=== PATIENT | male | born 2000 | race Caucasian/White ===

== ENCOUNTER 2024-04-19 09:09 | Emergency (ER) | payer SELFPAY ==
[2024-04-19 09:13] VITALS: BP 119/84
[2024-04-19 10:42] LABS: Urine Albumin 3+ (Neg - Trace); Urine Bilirubin 1+ (Negative); Urine Character Very Cloudy (Clear); Urine Color Brown; Urine Glucose Negative (Negative); Urine Ketone Trace (Negative); Urine Leukocyte Trace (Negative); Urine Nitrite Negative (Negative); Urine Occult Blood 3+ (Negative); Urine Urobilinogen 1+ (Neg - 1+)
[2024-04-19 10:58] LABS: Urine Red Blood Cell >100 /HPF (0-2)
[2024-04-19 11:03] LABS: % Basophils 0.6 % (0-2); % Eosinophils 1.9 % (0-6); % Immature Granulocytes 0.6 % (0-0.5); % Monocytes 11.4 % (1.7-9.3); % Neutrophils 70.5 % (42.2-75.2); Absolute Eosinophils 0.1 10^3/uL (0-0.7); Absolute Monocytes 0.8 10^3/uL (0.1-0.6); Absolute Neutrophils 4.9 10^3/uL (1.4-6.5); Hematocrit 42.8 % (39.0-52.0); Hemoglobin 15.5 g/dL (13.0-18.0); Mean Corp Hgb Conc. 36.2 g/dL (33.0-37.0); Mean Platelet Volume 10.5 fL (7.4-10.4); Nucleated Red Blood Cells % 0 % (-); Platelet Count 212 10^3/uL (130-400); Red Blood Cell Count 5.35 10^6/uL (4.70-6.10); Red Cell Dist. Width 12.7 % (11.5-14.5); White Blood Cell Count 6.9 10^3/uL (4.8-10.8)
[2024-04-19 11:26] LABS: Blood Urea Nitrogen 8 mg/dl (9-20); Calcium 9.9 mg/dl (8.4-10.2); Carbon Dioxide 31 mmol/L (22-30); Chloride 99 mmol/L (98-107); Creatine Phosphokinase 47 U/L (55-170); Glucose 109 mg/dl (70-99); Potassium 3.7 mmol/L (3.5-5.1); Sodium 140 mmol/L (135-145); eGFR > 60.00
--- NOTE | 2024-04-19 14:20 | ED.GENMED ---
History of Present Illness
General
Chief Complaint: Urinary Symptoms
Time Seen by Provider: 04/19/24 09:52
History of Present Illness
History of Present Illness:
Patient describing hematuria today. Some whiteness to his urine the last few days. Different than semen. No flank pain or back pain no fever or chills.
Phy Exam
Physical Exam
Physical Exam:
GENERAL: Alert and oriented in no apparent distress
EYE: Orbits normal.
NECK: Supple, no significant adenopathy.
ENT: Pharynx without erythema
CARDIAC: Regular rate and rhythm without any obvious murmurs.
LUNGS: Clear breath sounds,normal
ABDOMEN: Soft, without focal tenderness or distention. No CVA tenderness
: Within normal limits
NEUROLOGICAL: Alert and oriented , grossly non-focal
SKIN: Warm and dry, no rash or lesion, no discoloration, skin intact.
MUSCULOSKELETAL: No edema,no deformity.Good color
PSYCH: Normal and appropriate interaction.
Course
Orders/Labs/Results
Orders:
Orders
04/19/24 10:07
Urinalysis Reflex To Culture Urgent
Date Specimen was Collected: 04/19/24
Time Specimen was Collected: 10:02
Urine Microscopic Reflex Cult Urgent
Chlamydia/GC by PCR Urgent
ADALBERTO Source: Urine
Specimen Description:
Source:: URINE
Date Specimen was Collected: 04/19/24
Time Specimen was Collected: 10:02
04/19/24 10:58
Basic Metabolic Panel Urgent
CPK [Creatine Phosphokinase] Urgent
Complete Blood Count/With Diff Urgent
04/19/24 13:27
CT Abd/pel Without Iv Or Oral Urgent
Comment:
Reason For Exam: Hematuria
04/19/24 15:07
Cefdinir [Omnicef] 300 mg PO NOW STA
Abnormal Lab Results
04/19/24 04/19/24
10:07 10:58
MPV 10.5 H fL
(7.4-10.4)
Absolute Lymphs (auto) 1.0 L 10^3/uL
(1.2-3.4)
Absolute Monos (auto) 0.8 H 10^3/uL
(0.1-0.6)
Immature Gran % 0.6 H %
(0-0.5)
Lymphocytes % 15.0 L %
(20.5-51.1)
Monocytes % 11.4 H %
(1.7-9.3)
Carbon Dioxide 31 H mmol/L
(22-30)
BUN 8 L mg/dl
(9-20)
Glucose 109 H mg/dl
(70-99)
Creatine Kinase 47 L U/L
(55-170)
Urine Ketones Trace A
(Negative)
Ur Occult Blood Reflex 3+ A
(Negative)
Urine Bilirubin 1+ A
(Negative)
Leukocyte Esterase Rfl Trace A
(Negative)
Urine RBC >100 A /HPF
(0-2)
Urine Albumin (Reflex) 3+ A
(Neg - Trace)
04/19/24 10:58
04/19/24 10:58
Vital Signs
Initial and Last Documented VS:
Initial Vital Signs
Temp Pulse Resp BP Pulse Ox
98.2 F 86 16 119/84 100
04/19/24 09:13 04/19/24 09:13 04/19/24 09:13 04/19/24 09:13 04/19/24 09:13
Last Documented Vital Signs
Temp Pulse Resp BP Pulse Ox
98.2 F 86 16 119/84 100
04/19/24 09:13 04/19/24 09:13 04/19/24 09:13 04/19/24 09:13 04/19/24 09:13
*Radiology
Radiology exam reviewed: radiology read reviewed (Nonobstructing stone UVJ. Duplicated system.)
*Pulse Oximetry
Patient hypoxic: no
*Critical Care Note
Total Time (30-74mins, 75-104mins- exclusive of procedures): Not Applicable
Update Note
Update Note:
Patient is nontoxic in no distress. Suspect a small stone is causing the hematuria. Not convinced there is an infectious issue but will cover with antibiotics to follow-up
ED Attending Note
-
Portions of this chart may have been created with voice recognition software.� Occasional wrong word or��sound alike� substitutions may have occurred due to the inherent limitations of voice recognition software.
Discharge Plan
Departure
Patient Disposition: Home (Routine Discharge)
Date of Disposition: 04/19/24
Time of Disposition: 15:08
Patient with high blood pressure during this ER visit?: Yes
Discharge Problem:
Nonobstructing kidney stone
Instructions: Blood in the Urine (Hematuria), Adult (DC), Kidney Stone, Adult ED
Prescriptions:
New
cefdinir 300 mg capsule
300 mg PO BID 7 Days Qty: 14 0RF
Referrals:
Aaron Cordova MD [Family Provider] -
Hipolito Breen MD [Active] - Follow up in 5-7 days
Activity Restrictions/Additional Instructions:
Follow-up with urology. Stay well-hydrated.
Have a repeat urinalysis done in the next 1 to 2 weeks
Interventions
Interventions:
*Risk Screen - Suicide Last Done: 04/19/24 09:13
*General Assessment Last Done: 04/19/24 13:17
*Neglect/Abuse Screening Last Done: 04/19/24 09:13
ED- Fall Risk Assessment Last Done: 04/19/24 13:17
*ED COVID-19 Vaccine History Last Done: 04/19/24 09:13
ED-Male Genitourinary Assessment Last Done: 04/19/24 11:04
Discharge Date and Time
Print Language: LUXEMBOURGER
[2024-04-19 15:00] VITALS: BP 116/79
== END 2024-04-19 15:00 | disposition home or self-care (01) ==
LOC: EMR 09:09
PROVIDERS: EMERGENCY PHYSICIAN Emergency Medicine; FAMILY PHYSICIAN Family Medicine
DX: N20.0 Calculus of kidney (principal)
CPT/HCPCS: 99284; 74176; 80048; 81003; 81015; 82550; 85025; 87491; 87591